=== PATIENT | male | born 1945 | race Caucasian/White ===

== ENCOUNTER 2023-01-10 16:19 | Emergency (ER) | payer OTHER, SELFPAY ==
[2023-01-10 16:26] VITALS: BP 154/82; PULSE 52; RESP 16; TEMP 36.4; O2SAT 97
--- NOTE | 2023-01-10 16:29 | ED.EYEPROB ---
HPI - Eye Problem General Chief complaint: Eye Problems Stated complaint: FB L EYE Time Seen by Provider: 01/10/23 16:29 Source: patient, RN notes reviewed and old records reviewed Mode of arrival: ambulatory Limitations: no limitations History of Present Illness HPI Narrative: 78 yr old male accompanied by his spouse with complaints of working on his deck this afternoon and he states that he felt something go into his left eye. He reports that he flushed his eye out at home but continued to have foreign body sensation to his left eye. Patient reports that he had his regular glasses on while working on deck but didn't have safety goggles. Visual acuity right eye 20/25 and left 20/40 with eye glasses worn during exam. Patient has no conjunctival redness or any drainage from left eye. MD chief complaint: eye redness and foreign body (sensation) Onset (ago): hour(s) (this afternoon) Eye Symptoms: burning, redness and foreign body sensation Severity scale (1-10): 4 Treatments Prior to Arrival: irrigated eye Related Data Home Medications Medication Instructions Recorded Confirmed atorvastatin 40 mg tablet 40 mg PO DAILY 01/10/23 01/10/23 tamsulosin 0.4 mg capsule 0.4 mg PO DAILY 01/10/23 01/10/23 Allergies Allergy/AdvReac Type Severity Reaction Status Date / Time No Known Allergies Allergy Verified 01/10/23 16:43 Review of Systems Review of Systems: CONSTITUTIONAL: Denies fever, chills, or sweats. EYES: Denies visual changes. Reports redness, irritation,no discharge. ENT: Denies rhinorrhea, congestion, sore throat, or otalgia. CARDIOVASCULAR: Denies chest pain, palpitations, or edema. RESPIRATORY: Denies cough or dyspnea. SKIN: Denies rash or itching. NEUROLOGIC: Denies headache All systems reviewed & are unremarkable except as noted in HPI and below PMFSH Past Medical History Medical History (Updated 01/10/23 @ 17:39 by Sophie Vogel NP) BPH (benign prostatic hyperplasia) Elevated cholesterol Social History Social History (Updated 01/10/23 @ 17:59 by Sophie Vogel NP) Smoking status: Never smoker Alcohol intake: unknown Substance use type: does not use Living arrangements: with family Gender identity (if verbalized by the patient): Male Comments At time of signature, agree with nursing past medical, surgical, social and family history. There is no relevant family history pertinent to the presenting complaint Exam Narrative: GENERAL: Well-appearing, well-nourished, and in no acute distress. HEAD: Normocephalic, atraumatic. EYES: PERRLA and EOMI. Upper and lower eyelids unremarkable. No periorbital cellulitis noted. Sclera and conjunctivae injected ENT: Nares clear, no rhinorrhea or epistaxis. Mucous membranes moist. NECK: Supple. no lymphadenopathy CHEST: Clear to auscultation. No respiratory distress.SAO2 97% on room air HEART: Regular rate and rhythm. No murmur heard. Normal peripheral pulses. SKIN: Warm, dry, no rash. NEURO: No focal deficits. Alert and oriented x3. Course Course Emergency Course: Patient is aware of diagnosis, understands and agrees to treatment plan. Anticipatory guidance given. Patient agrees to follow-up as directed and is aware of reasons to seek care at the emergency department. Portions of this record may have been created with voice recognition software Level of Care: Express Care Visit Vital Signs Vital signs: Vital Signs Temperature 36.4 C 01/10/23 16:26 Pulse Rate 52 L 01/10/23 16:26 Respiratory Rate 16 01/10/23 16:26 Blood Pressure 154/82 H 01/10/23 16:26 Pulse Oximetry 97 01/10/23 16:26 Temperature 36.4 C 01/10/23 16:26 Pulse Rate 52 L 01/10/23 16:26 Respiratory Rate 16 01/10/23 16:26 Blood Pressure 154/82 H 01/10/23 16:26 Pulse Oximetry 97 01/10/23 16:26 Reviewed Procedures FB Removal Eye Foreign Body #1: Foreign Body Removal Date: 01/10/23 Time Out performed: Yes Loc
== END 2023-01-10 16:50 | disposition home or self-care (01) ==
PROVIDERS: Emergency Provider Registered Nurse; PCP Family Medicine
DX: S05.02XA Injury of conjunctiva and corneal abrasion without foreign body, left eye, initial encounter (principal); X58.XXXA Exposure to other specified factors, initial encounter; N40.0 Benign prostatic hyperplasia without lower urinary tract symptoms; E78.00 Pure hypercholesterolemia, unspecified
CPT/HCPCS: 99213; A9270; G0463

== ENCOUNTER 2024-02-03 00:41 | Day surgery (SDC) | payer OTHER, SELFPAY ==
[2024-01-27 11:57] VITALS: BMI 29.0
[2024-02-03 13:17] VITALS: BP 139/75; PULSE 54; RESP 16; TEMP 36.2; O2SAT 100
[2024-02-03] MEDS: LACTATED RINGERS 1,000 ML 150 ML IV CONT (13:28)
--- NOTE | 2024-02-03 13:48 | WPDANESEPPF ---
Anes - Initial Pre Proc Eval Procedure: Operation Date: 02/03/24 14:00 Proposed Procedures p Colonoscopy - Catalino Sharp MD Date/Time: 02/03/24 13:48 Surgeon: Catalino Sharp MD Pre Op Diagnosis: CIBH, Non-celiac gluten sensitivity Patient Data Age: 79 Gender: M Height: 1.85 m Weight: 96.1 kg Last Vital Signs Temp 97.1 F L 02/03/24 13:17 Pulse 54 L 02/03/24 13:17 Resp 16 02/03/24 13:17 BP 139/75 02/03/24 13:17 Pulse Ox 100 02/03/24 13:17 O2 Del Method Room Air 02/03/24 13:17 Allergies Allergy/AdvReac Type Severity Reaction Status Date / Time gluten Allergy Severe CELIAC Verified 02/03/24 13:16 Home Medications Medication Instructions Recorded Confirmed Type atorvastatin 40 mg tablet 40 mg PO DAILY 01/10/23 02/03/24 History tamsulosin 0.4 mg capsule 0.8 mg PO DAILY 01/10/23 02/03/24 History Adult One Daily Multivitamin 1 cap PO DAILY 01/27/24 01/27/24 History aspirin 325 mg tablet 325 mg PO DAILY 01/27/24 02/03/24 History calcium carbonate-vitamin D3 500 1 cap PO DAILY 01/27/24 01/27/24 History mg (1,250 mg)-50 unit capsule loperamide 2 mg capsule 2 mg PO EVERY OTHER DAY 01/27/24 01/27/24 History Patient hx anesthesia problems: none Family hx anesthesia problems: none Results Review: All pre-operative results and documents have been reviewed as part of the pre-operative evaluation. [facility] Past Medical History Medical History (Updated 01/11/23 @ 00:01 by Abby Sarmiento) BPH (benign prostatic hyperplasia) Elevated cholesterol Social History Social History (Updated 01/10/23 @ 17:59 by Sophie Vogel NP) Smoking packs per day: 1.25 Smoking cigarettes per day: 25.0 Years smoked: 35 Smoking pack-years: 43.75 Smoking status: Former smoker Tobacco type: cigarettes Alcohol intake: current Substance use: never Substance use type: does not use Living arrangements: with family Gender identity (if verbalized by the patient): Male Spiritual care concerns: No Anes - Eval Final PreProcedure Day of Procedure 02/03/24 13:48 Patient weight: normal Heart: regular rate and rhythm Lungs: clear to auscultation Airway: Mallampati scale class II Neurological: alert and oriented Last oral intake: >/= 8 hours ASA classification: III Emergent: no Anesthetic plan: proceed Anesthesia type and monitoring: general GIVS and standard monitoring Results Review: All pre-operative results and documents have been reviewed as part of the pre-operative evaluation. Informed Consent: The patient's anesthetic plan and its attendant risks and benefits were discussed with the patient/family/POA. Questions were solicited and answers provided to the satisfaction of the patient/family/POA.
--- NOTE | 2024-02-03 14:05 | PM.HPGS ---
History of Present Illness History of Present Illness Consent: Risks, benefits, and alternatives have been discussed and questions answered. Patient agrees to proceed with procedure. Chief complaint: CIBH, Non-celiac gluten sensitivity Narrative: Timothy Walker is a 79 year old male here for colonoscopy, last one 9 years ago, he has been diagnosed with celiac and he is complaint with diet but last few months with some episodes of loose stools using imodium prn Review of Systems Review of Systems: All systems reviewed & are unremarkable except as noted in HPI and below PMFSH Past Medical History Medical History (Updated 02/03/24 @ 14:06 by Catalino Sharp MD) BPH (benign prostatic hyperplasia) Celiac disease Elevated cholesterol Loose stools Social History Social History (Updated 01/10/23 @ 17:59 by Sophie Vogel NP) Smoking packs per day: 1.25 Smoking cigarettes per day: 25.0 Years smoked: 35 Smoking pack-years: 43.75 Smoking status: Former smoker Tobacco type: cigarettes Alcohol intake: current Substance use: never Substance use type: does not use Living arrangements: with family Gender identity (if verbalized by the patient): Male Spiritual care concerns: No Meds Home Medications and Allergies Home Medications Medication Instructions Recorded Confirmed Type atorvastatin 40 mg tablet 40 mg PO DAILY 01/10/23 02/03/24 History tamsulosin 0.4 mg capsule 0.8 mg PO DAILY 01/10/23 02/03/24 History Adult One Daily Multivitamin 1 cap PO DAILY 01/27/24 01/27/24 History aspirin 325 mg tablet 325 mg PO DAILY 01/27/24 02/03/24 History calcium carbonate-vitamin D3 500 1 cap PO DAILY 01/27/24 01/27/24 History mg (1,250 mg)-50 unit capsule loperamide 2 mg capsule 2 mg PO EVERY OTHER DAY 01/27/24 01/27/24 History Allergies Allergy/AdvReac Type Severity Reaction Status Date / Time gluten Allergy Severe CELIAC Verified 02/03/24 13:16 Vital Signs Vital Signs - 24 hr 02/03/24 13:17 Temperature 97.1 F L Pulse Rate 54 L Respiratory Rate 16 Blood Pressure 139/75 Pulse Oximetry 100 Oxygen Delivery Room Air Exam Const: General: comfortable and no acute distress HENMT: Face/Nose/Sinus: Normal nares present Eyes: General: appearance normal, both eyes and all related structures Neck: Neck: no JVD Resp: Auscultation: clear to auscultation bilaterally Cardio: Rate: regular rate Rhythm: regular rhythm GI: Inspection: non-distended GI Palp: Yes Soft to palpation Skin: General skin exam: normal color Neuro: General: gait normal Speech: normal speech Extrem: General: normal to inspection Psych: Mental Status: mental status grossly normal Assessment and Plan Assessment and plan (1) Loose stools: Code(s): R19.5 - Other fecal abnormalities Status: Acute Assessment and Plan: colonoscopy, consider random bx (2) Celiac disease: Code(s): K90.0 - Celiac disease Status: Acute Assessment and Plan: on diet
[2024-02-03 14:27] VITALS: BP 134/79; PULSE 67; RESP 16; O2SAT 96
[2024-02-03 14:37] VITALS: BP 138/85; PULSE 62; RESP 16; O2SAT 98
[2024-02-03 14:44] VITALS: BP 135/82; PULSE 60; RESP 16; O2SAT 100
--- OUTSIDE RECORDS SUMMARY | 2024-02-03 14:45 | XMS_ITS | Referral Summary ---
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 Role Phone Ashley Mota DO Primary Care Provider Reason for Referral * Consultation (Routine) - New Request Specialty Diagnoses / Procedures Referred By Alexandro covarrubias Referred To Contact GASTROENTEROLOGY Diagnoses Gluten enteropathy Change in bowel habits Screening for colon cancer Ashley Mota DO [address] [place] [address] Catalino Alvarez MD [address] [facility] [address] [facility] [address] [place] [address] Referral ID Status Reason Start Date Expiration Date V isits Requested Visits Authorized [id number] New Request 12/17/2023 12/16/2024 1 1 Scheduling Instructions 'mau name: Catalino Sharp ([employer] Consultant) NPI # [id number] Tax ID # [id number] Phone number [phone] Fax number: [phone] Reason for referral: K90.41, R19.4, Z12.11 Insurance: [employer] Appointment: Reason for Visit * Reason Onset Date Comments Referral 12/17/2023 Encounter Details Date Type Department Care Team (Late st Contact Info) Description 12/17/2023 Telephone [facility] - [place] [address], [address] [place] [phone]
== END 2024-02-03 15:00 | disposition home or self-care (01) ==
PROVIDERS: PCP Family Medicine; Visit Provider Internal Medicine Gastroenterology
PROC: 0DJD8ZZ Inspection of Lower Intestinal Tract, Via Natural or Artificial Opening Endoscopic (ICD-10-PCS; CPT 45378; principal; 2024-02-03 14:00)
DX: K52.832 Lymphocytic colitis (principal); K64.8 Other hemorrhoids; K90.0 Celiac disease; Z87.891 Personal history of nicotine dependence
CPT/HCPCS: 45380; 88305; J1596; J2704; J7120

== ENCOUNTER 2025-06-28 00:33 | Day surgery (SDC) | payer OTHER, SELFPAY ==
[2025-06-10 10:27] VITALS: BMI 29.4
--- OUTSIDE RECORDS SUMMARY | 2025-06-28 00:35 | XMS_ITS | Clinical Summary ---
Author Organization [facility] Address [address] [place] [id number] Care Team Providers Care Mold Maker Name Role Phone Ashley Mota DO Primary Care Provider [phone] Allergies Active Allergy Reactions Criticality Noted Date Comments Food Diarrhea 08/04/2004 gluten Gluten Meal Unknown,Diarrhea 04/03/2005 Medications aspirin 325 MG tablet Take 1 tablet (325 mg total) by mouth daily. Active Calcium Carbonate-Vitamin D (CALCIUM-D) 600-400 MG-UNIT Tab Active Multiple Vitamin (MULTI-DAY) Tab Take 1 tablet by mouth daily. Active sildenafil (VIAGRA) 100 MG tablet Take 0.5 tablets (50 mg total) by mouth daily as needed for Erectile Dysfunction. Active atorvastatin (LIPITOR) 40 MG tabletIndications:M ixed hyperlipidemia Take 1 tablet (40 mg total) by mouth daily. 90 tablet 3 5 Active tamsulosin (FLOMAX) 0.4 MG CapIndications:Nikolay gn prostatic hyperplasia with urinary frequency TAKE 1 CAPSULE BY MOUTH TWICE A DAY 180 capsule 3 5 Active Active Problems Problem Noted Date Diagnosed Date Cardiomyopathy, unspecified type 03/24/2024 Difficult intubation 08/12/2023 Elevated prostate specific antigen (PSA) 013 Hyperlipidemia 01/28/2013 Arteriosclerosis of coronary artery 07/07/2012 BPH with elevated PSA 07/07/2012 Gluten enteropathy 07/07/2012 Resolved Problems Problem Noted Date Diagnosed Date Resolved Date Tinea pedis 12/24/2017 03/05/2021 Irritable bowel syndrome 08/31/201309/2020 Herpes zoster 07/07/2012 03/05/2021 Encounters Date Type Department Care Team Description 06/06/2025 9:30 AM EDUCATION ADMINISTRATOR Office Visit [facility] [address] [place] [address] Donald Cabrales MD Cardiomyopathy (1yr) 06/06/2025 Travel 06/03/2025 Results Follow-Up [facility] [address], [address] [facility] [place] [phone] Ashley Mota DO US AORTA 06/02/2025 9:30 AM CDT - 06/02/2025 11:59 PM CDT Hospital Encounter [facility] [place] [address] Ashley Mota DO Discharge Disposition: Home or Self Care (Routine Discharge) 06/02/2025 Travel 05/11/2025 Scan [employer] INFO SRVCS Scanned, [facility] 05/11/2025 Telephone [facility] [address], [address] [place] [address] Ashley Mota DO Referral 05/09/2025 Telephone [facility] [address], [address] [facility] [place] [address] Ashley Mota DO Referral Request (Cardiology referral) 05/05/2025 Telephone [facility] [address], [address] [facility] [place] [address] Ashley Mota DO Referral (GI Referral ) 04/26/2025 Telephone [facility] [address], [address] [place] [address] Ashley Mota DO Referral Request (Dermatology referral ) from Last 3 Months Immunizations Immunization Administration Dates Next Due Arexvy Respiratory Syncytial Virus (RSV, adjuvanted) 0.5 mL, PF 06/08/2023 Dtap (Generic) 03/29/2019 Fluzone 6 Months+ Quad (0.5 mL Prefilled Syringe) 05/27/2019,05/04/2018 Fluzone High Dose (IIV, triv alent, 0.5mL) 05/04/2024 Fluzone High Dose - >Age 65 (Prefilled Syringe) 05/10/2022,04/16/2020 Influenza (Generic) 04/27/2013 Influenza Adult (Generic) 04/26/2023,10/2020,06/03/2017,2015,04/27/2015 MODERNA COVID-19 (12+) MRNA, LNP-S, PF, 100 MCG/ 0.5 ML DOSE 10/13/2020,09/15/2020 MODERNA COVID-19 (CRYSTAL EVALUATOR AISHA TALITA), MRNA, LNP-S, PF, 50 MCG/ 0.25 ML DOSE 11/27/2021,06/13/2021 PFIZER COVID-19 BIVALENT (12 +) mRNA, LNP-S, PF, 30 MCG/0.3 ML DOSE 12/17/2022,06/12/2022 Pneumococcal (Pneumovax 23) 05/27/2019 Pneumococcal (Prevnar 13) 03/19/2016 Shingrix 02/16/2019,11/27/2018 Td (Decavac) 03/29/2019 Family History Medical History Relation Comments Early Father Dementia Mother Diabetes Mother Stroke Mother Suffered a strok e and at age 88 gluten enteropathy Mother Diabetes Sister Sudden Son 1 Early Son 2 Suffered sudden heart attack and at age 28 Relation Status Comments Father (Age 38) Maternal Grandfather Maternal Grandmother Mother (Age 88) Paternal Grandfather Paternal Grandmother Sister (Age 63) Son 1 (Age 28) Son 2 Social History Tobacco Use Types Packs/Day Years Used Date Smoking Tobacco: Former Cigarettes 1.5 30 Q uit: 04/2000 Passive Smoke Exposure: Past Smokeless Tobacco: Never Tobacco Cessation:Counseling Given: Not Answered Comments:NA Alcohol Use Standard Drinks/Week Comments Yes 0 (1 standard drink = 0.6 oz pure alcohol) Very rare consumption of alcohol, but occassionally AUDIT-C Answer Date Recorded Frequency of Alcohol Consumption Never 08/19/2018 Average Number of Drinks Not on file 019 Frequency of Binge Drinking Not on file 08/04 PHQ-2 Answer Date Recorded Patient Health Questionnaire-2 Score 0 03/25/2025 Sex and Gender Information Value Date Recorded Sex Assigned at Male 03/25/2025 7:47 AM CDT Legal Sex Male 7:04 PM CDT Gender Identity Male 11/23/2021 10:12 AM CDT Sexual Orientation Straight 11/23/2021 10 :12 AM CDT Occupation Industry Job Start Date Job End Date Teacher Not on file Not on file Not on file Last Filed Vital Signs Vital Sign Reading Time Taken Comments Blood Pressure 124/72 06/06/2025 10:03 AM EDUCATION ADMINISTRATOR Pulse 67 06/06/2025 9:26 AM EDUCATION ADMINISTRATOR Temperature 36.3 C (97.4 F) 03/25/2025 7:47 AM CDT Respiratory Rate 18 03/25/2025 7:47 AM CDT Oxygen Saturation 98% 06/06/2025 9:26 AM EDUCATION ADMINISTRATOR Inhaled Oxygen Concentration - - Weight 100.4 kg (221 lb 6.4 oz) 06/06/2025 9:26 AM EDUCATION ADMINISTRATOR Height 181.6 cm (5' 11.5) 06/06/2025 9:26 AM CS T Body Mass Index 30.45 06/06/2025 9:26 AM EDUCATION ADMINISTRATOR Plan of Treatment Upcoming Encounters Date Type Department Care Team (Late st Contact Info) Description 06/19/2026 9:45 AM EDUCATION ADMINISTRATOR Office Visit [facility] [address] [place] [address] Donald Cabrales MD [facility] [address] [place] [address] Health Maintenance Due Date Last Done Comments Annual Medicare Wellness Visit 01/07/2012 COVID-19 Vaccine ( season) 2025 01/12/2025, 05/04/2024, 05/02/2023, Additional history exists DTaP, Tdap and Td Vaccines (3 - Tdap) 03/29/2029 03/29/2019, 03/29/2019 Zoster Vaccines Completed 02/16/2019, 11/27/2018 Pneumococcal Vaccine: 50+ Years Completed 05/27/2019, 03/19/2016 RSV Immunization or 60+ Years Completed 06/08/2023 Colorectal Cancer Screening Colonoscopy (10 Years) Discontinued 02/03/2024, 08/30/2013, 08/30/2013 Hepatitis C Completed 03/17/2024 PHQ-2 (Physician [place]) Completed 03/25/2025 Influenza Adult Completed 05/09/2025, 08/2023, 04/26/2023, Additional history exists AAA SCREENING Completed 06/02/2025, 03/04, 10/21/2012 Hepatitis A Vaccines Aged Out No long er eligible based on patient's age to complete this topic Meningococcal B Vaccine Aged Out No l onger eligible based on patient's age to complete this topic Meningococcal Vaccine Aged Out No sangeetha reid eligible based on patient's age to complete this topic RSV Immunizations Under 20 Months Aged Out No longer eligible based on patient's age to complete this topic Procedures Procedure Name Priority Date/Time Associated Diagnosis Comments US AORTA Routine 06/02/2025 11:55 AM CDT Thoracic aortic aneurysm without rupture, unspecified part USE ECHOCARDIOGRAM W CON Routine 06/02/2025 11:03 AM CDT Cardiomyopathy, unspecified type (CMS/HCC HHS/HCC) Arteriosclerosis of coronary artery HEPATITIS C ANTIBODY W/RFX TO HCV RNA Routine 03/17/2024 8:34 AM CDT Need for hepatitis C screening test COLONOSCOPY GENERIC (SCAN ORDER) 02/03/2024 from Last 3 Months or Most Recently Relevant to Health Maintenance Results * US AORTA (06/02/2025 11:55 AM CDT) Anatomical Region Laterality Modality Abdomen Ultrasound 06/03/2025 8:13 AM CDT Impressions 06/03/2025 8:17 AM CDT IMPRESSION: 1. Aneurysmal dilatation of the proximal abdominal aorta measuring up to 3.8 cm, increased from prior study 03/13/2021. 2. Dilatation of the bilateral common iliac arteries measuring up to 1.7 cm, also increased. Ordered By: ASHLEY MOTA Interpreted By: Denis Cruz MD, 06/03/2025 8:13 AM Narrative 06/03/2025 8:17 AM CDT [place] [address] US AORTA INDICATION: f/u aortic aneurysm TECHNIQUE: Grayscale color and spectral Doppler ultrasound performed of the abdominal aorta. COMPARISON: Aortic ultrasound 03/13/2021. FINDINGS: The IVC is unremarkable. The proximal aorta measures 2.9 x 3.8 x 2.8 cm. This previously measured 2.5 x 2.4 x 2.2 cm. The mid aorta measures 2.3 x 2.1 x 2.7 cm. This previously measured up to 3.0 cm on 03/13/2021. The distal aorta measures 1.6 x 1.6 x 1.9 cm. There is patent Doppler flow within the abdominal aorta. There is heavy calcific plaquing of the distal abdominal aorta. The right common iliac artery measures 1.7 x 1.1 x 1.3 cm. The left common iliac artery measures 1.7 x 1.5 x 1.0 cm. These previously measured up to 1.2 cm on the right and 1.3 cm on the left respectively. Procedure Note Denis Cruz MD - 06/03/2025 [place] [address] US AORTA INDICATION: f/u aortic aneurysm TECHNIQUE: Grayscale color and spectral Doppler ultrasound performed ofthe abdominal aorta. COMPARISON: Aortic ultrasound 03/13/2021. FINDINGS: The IVC is unremarkable. The proximal aorta measures 2.9 x 3.8 x 2.8 cm.This previously measured 2.5 x 2.4 x 2.2 cm. The mid aorta measures 2.3 x2.1 x 2.7 cm. This previously measured up to 3.0 cm on 03/13/2021. Thedistal aorta measures 1.6 x 1.6 x 1.9 cm. There is patent Doppler flowwithin the abdominal aorta. There is heavy calcific plaquing of the distalabdominal aorta. The right common iliac artery measures 1.7 x 1.1 x 1.3cm. The left common iliac artery measures 1.7 x 1.5 x 1.0 cm. Thesepreviously measured up to 1.2 cm on the right and 1.3 cm on the leftrespectively. IMPRESSION: 1. Aneurysmal dilatation of the proximal abdominal aorta measuring up to3.8 cm, increased from prior study 03/13/2021. 2. Dilatation of the bilateral common iliac arteries measuring up to 1.7cm, also increased. Ordered By: ASHLEY MOTA Interpreted By: Denis Cruz MD, 06/03/2025 8:13 AM Ashley Mota DO ULTRASOUND Final Result * USE ECHOCARDIOGRAM W CON (06/02/2025 11:03 AM CDT) Anatomical Region Laterality Modality NA Echocardiogram 06/02/2025 9:55 AM CDT Narrative 06/03/2025 2:29 PM CDT Echocardiography Report Pat.Name: JORGE QUINONES Pat.ID: [id number] St.Date: 06/02/2025 [place].: [id number] JEANNA DESAI EWDPROV EWDPROV Exam Time: 9:55:00 AM Study Type:ECHO WITH CARDIAC DOPPLER COMP Height: 71 in Weight: 218 lb BSA: 2.19 m2 Age: 6 1945,80Y Sex: M BP: 148/72 HR: 58 bpm Sonogrphr: Maday Faustin [facility] Pat. Stat.:Outpatient Reason for Study:Cardiomyopathy, Shortness of breath Procedures: 2D, M-mode, Doppler, Color Flow, Definity was used to enhance endocardial definition. The study quality is technically difficult. Race: W ++++++++++++++++++++++++++++++++++++ SUMMARY: ++++++++++++++++++++++++++++++++++++ The left ventricular size is normal. The left ventricular systolic function is lower limits of normal. Estimated left ventricular ejection fraction is 50-55%. Mild concentric left ventricular hypertrophy. Left ventricular diastolic function is normal. The right ventricular size is mild to moderately enlarged. Right ventricular systolic function is normal. The left atrial size is mildly enlarged. Right atrial size is moderately enlarged. Mild tricuspid regurgitation. ++++++++++++++++++++++++++++++++++++ FINDINGS: ++++++++++++++++++++++++++++++++++++ LV: The left ventricular size is normal. The left ventricular systolic function is lower limits of normal. Estimated left ventricular ejection fraction is 50-55%. Mild concentric left ventricular hypertrophy. Left ventricular diastolic function is normal. WM: Wall motion appears normal in all segments. RV: The right ventricular size is mild to moderately enlarged. Right ventricular systolic function is normal. IVS: No evidence of ventricular septal defect. LA: The left atrial size is mildly enlarged. The left atrial volume is mildly increased (34- 41ml/M2). RA: Right atrial size is moderately enlarged. IAS: Atrial septum appears intact. MADELINE: No evidence of pericardial effusion. AO: Normal aortic root. The aortic root measures 3.6 cm. The proximal ascending aorta measures 3.3cm. PA: Estimated right atrial pressure of 3 mmHg. SVn: Inferior vena cava is normal. Inferior vena cava shows >50% collapse with respiration consistent with normal right atrial pressure. AV: The aortic valve is trileaflet. No evidence of aortic valve stenosis. No evidence of aortic regurgitation. MV: Trace mitral regurgitation. No evidence of mitral stenosis. PV: Trace pulmonic regurgitation. No evidence of pulmonic valve stenosis. TV: Mild tricuspid regurgitation. No evidence of tricuspid valve stenosis. ++++++++++++++++++++++++++++++++++++ MEASUREMENTS: ++++++++++++++++++++++++++++++++++++ DOPPLER LVOT LVOTpkPG 7 mmHg LVOTmnPG 4 mmHg LVOTpkVel 129 cm/s (70-110)+* LVOT SV 163 ml LVOT TVI 28.5 cm Right Atrium RA Press 3 mmHg Pace's Disk 20 Pulmonary Veins PVnpkVeld 32.8 cm/s PVnVs/Vd 1.6 PVnpkVels 53.4 cm/s PVn A Dur 158 msec AV Forward Flow AV TVI 38.1 cm AV pkPG 11 mmHg AV pkVel 163 cm/s (100-170)+ Area (TVI) 4.29 cm2 (3-5) AV mnPG 6 mmHg Area (Harsha) 4.53 cm2 (3-5) MV Forward Flow MV DeTm 515 msec MV pkPG 3 mmHg MVA P1/2t 1.46 cm2 (4-6)* MV E/A 0.8 MV P1/2t 151 msec (30-60)+* MV pkE 59.9 cm/s (60-130)* MV mnPG 1 mmHg MV pkA 76.4 cm/s PV Forward Flow PV pkVel 106 cm/s (60-90)+* PV AC 117 msec PV pkPG 4 mmHg TV Regurg Flow TV pkPG 20 mmHg TV pkVel 226 cm/s (30-70)* Right Ventricle RVsys P 23 mmHg Right Ventricle 13.7 cm/s Lat E' Lat e 9.46 cm/s Lat E/E' Lat E/e 6.3 Med E' Med e 6.09 cm/s Med E/E' Med E/e 9.8 Aortic Valve Aortic Valve Ar 1.96 Aortic Valve Ve 0.79 AV DI Value 0.75 Left Ventricle LV IVRT 130 msec PV Antegrade Flow Acceleration Sl 675 cm/s2 2D Left Ventricle LVIDd 6 cm (3.6-5.2)+* LV ESV 73.9 ml LVIDs 4.54 cm (2.3-3.9)+* LV ESV 120 ml LngAxd 9.48 cm LVESV BP 94.4 ml LngAxd 9.52 cm LV EF 50.7 % LV EDV 150 ml LV EF 42.3 % LV EDV 207 ml LV EF BP 46.4 % LVEDV BP 176 ml LV SV 76.1 ml LngAxs 7.94 cm LV SV 88 ml LngAxs 8.1 cm LV SV BP 81.6 ml LVPW LVPWd 1.08 cm Ventricular Septum IVSd 1.15 cm Left Atrium LA VOLBP 97.4 ml Aorta Ao Rtd 3.9 cm Ao Asc 3.7 cm (2.1-3.4)* LVOT LVOT 2.7 cm LVOTArea 5.73 cm2 Ratios IVS LA Biplane LAVol I BP 44.5 ml/m2 RA Single Plane Right Atrium MO 11.4 mm Right Atrium Sy 86.6 ml Right Atrium Sy 59.2 mm Right Atrium Sy 39.5 ml/m2 Right Atrium Sy 24.2 cm2 Right Ventricle Right Ventricle 54.4 mm Right Ventricle 36.3 mm Major Nemo 85.9 mm MMODE TA Tricuspid Annul 23.9 mm <Electronic Signature> 06/03/2025 02:29 PM Donald Cabrales M.D. Procedure Note Donald Cabrales MD - 06/03/2025 Echocardiography Report Pat.Name: JORGE QUINONES Pat.ID: [id number] .Date: 06/02/2025 : [id number] JEANNA DESAI EWDPROV EWDPROV Exam Time: 9:55:00 AM Study Type:ECHO WITH CARDIAC DOPPLER COMP Height: 71 in Weight: 218 lb BSA: 2.19 m2 Age: 6 1945,80Y Sex: M BP: 148/72 HR: 58 bpm Sonogrphr: Maday Faustin [facility] Pat. Stat.:Outpatient Reason for Study:Cardiomyopathy, Shortness of breath Procedures: 2D, M-mode, Doppler, Color Flow, Definity was used to enhance endocardial definition. The study quality is technically difficult. Race: W ++++++++++++++++++++++++++++++++++++ SUMMARY: ++++++++++++++++++++++++++++++++++++ The left ventricular size is normal. The left ventricular systolic function is lower limits of normal. Estimated left ventricular ejection fraction is 50-55%. Mild concentric left ventricular hypertrophy. Left ventricular diastolic function is normal. The right ventricular size is mild to moderately enlarged. Right ventricular systolic function is normal. The left atrial size is mildly enlarged. Right atrial size is moderately enlarged. Mild tricuspid regurgitation. ++++++++++++++++++++++++++++++++++++ FINDINGS: ++++++++++++++++++++++++++++++++++++ LV: The left ventricular size is normal. The left ventricular systolic function is lower limits of normal. Estimated left ventricular ejection fraction is 50-55%. Mild concentric left ventricular hypertrophy. Left ventricular diastolic function is normal. WM: Wall motion appears normal in all segments. RV: The right ventricular size is mild to moderately enlarged. Right ventricular systolic function is normal. IVS: No evidence of ventricular septal defect. LA: The left atrial size is mildly enlarged. The left atrial volume is mildly increased (34- 41ml/M2). RA: Right atrial size is moderately enlarged. IAS: Atrial septum appears intact. MADELINE: No evidence of pericardial effusion. AO: Normal aortic root. The aortic root measures 3.6 cm. The proximal ascending aorta measures 3.3cm. PA: Estimated right atrial pressure of 3 mmHg. SVn: Inferior vena cava is normal. Inferior vena cava shows >50% collapse with respiration consistent with normal right atrial pressure. AV: The aortic valve is trileaflet. No evidence of aortic valve stenosis. No evidence of aortic regurgitation. MV: Trace mitral regurgitation. No evidence of mitral stenosis. PV: Trace pulmonic regurgitation. No evidence of pulmonic valve stenosis. TV: Mild tricuspid regurgitation. No evidence of tricuspid valve stenosis. ++++++++++++++++++++++++++++++++++++ MEASUREMENTS: ++++++++++++++++++++++++++++++++++++ DOPPLER LVOT LVOTpkPG 7 mmHg LVOTmnPG 4 mmHg LVOTpkVel 129 cm/s (70-110)+* LVOT SV 163 ml LVOT TVI 28.5 cm Right Atrium RA Press 3 mmHg Pace's Disk 20 Pulmonary Veins PVnpkVeld 32.8 cm/s PVnVs/Vd 1.6 PVnpkVels 53.4 cm/s PVn A Dur 158 msec AV Forward Flow AV TVI 38.1 cm AV pkPG 11 mmHg AV pkVel 163 cm/s (100-170)+ Area (TVI) 4.29 cm2 (3-5) AV mnPG 6 mmHg Area (Harsha) 4.53 cm2 (3-5) MV Forward Flow MV DeTm 515 msec MV pkPG 3 mmHg MVA P1/2t 1.46 cm2 (4-6)* MV E/A 0.8 MV P1/2t 151 msec (30-60)+* MV pkE 59.9 cm/s (60-130)* MV mnPG 1 mmHg MV pkA 76.4 cm/s PV Forward Flow PV pkVel 106 cm/s (60-90)+* PV AC 117 msec PV pkPG 4 mmHg TV Regurg Flow TV pkPG 20 mmHg TV pkVel 226 cm/s (30-70)* Right Ventricle RVsys P 23 mmHg Right Ventricle 13.7 cm/s Lat E' Lat e 9.46 cm/s Lat E/E' Lat E/e 6.3 Med E' Med e 6.09 cm/s Med E/E' Med E/e 9.8 Aortic Valve Aortic Valve Ar 1.96 Aortic Valve Ve 0.79 AV DI Value 0.75 Left Ventricle LV IVRT 130 msec PV Antegrade Flow Acceleration Sl 675 cm/s2 2D Left Ventricle LVIDd 6 cm (3.6-5.2)+* LV ESV 73.9 ml LVIDs 4.54 cm (2.3-3.9)+* LV ESV 120 ml LngAxd 9.48 cm LVESV BP 94.4 ml LngAxd 9.52 cm LV EF 50.7 % LV EDV 150 ml LV EF 42.3 % LV EDV 207 ml LV EF BP 46.4 % LVEDV BP 176 ml LV SV 76.1 ml LngAxs 7.94 cm LV SV 88 ml LngAxs 8.1 cm LV SV BP 81.6 ml LVPW LVPWd 1.08 cm Ventricular Septum IVSd 1.15 cm Left Atrium LA VOLBP 97.4 ml Aorta Ao Rtd 3.9 cm Ao Asc 3.7 cm (2.1-3.4)* LVOT LVOT 2.7 cm LVOTArea 5.73 cm2 Ratios IVS LA Biplane LAVol I BP 44.5 ml/m2 RA Single Plane Right Atrium MO 11.4 mm Right Atrium Sy 86.6 ml Right Atrium Sy 59.2 mm Right Atrium Sy 39.5 ml/m2 Right Atrium Sy 24.2 cm2 Right Ventricle Right Ventricle 54.4 mm Right Ventricle 36.3 mm Major Nemo 85.9 mm MMODE TA Tricuspid Annul 23.9 mm <Electronic Signature> 06/03/2025 02:29 PM Donald Cabrales M.D. Ashley Mota DO ECHO Final Result * HEPATITIS C ANTIBODY W/RFX TO HCV RNA (03/17/2024 8:34 AM CDT) HEPATITIS C AB Non Reactive Non Reacti [facility] 1 INTERPRETATION Comment [facility] Comment: Not infected with HCV unless early or acute infection is suspected (which may be delayed in an immunocompromised individual), or other evidence exists to indicate HCV infection. 03/17/2024 8:34 AM CDT 03/17/2024 Narrative [facility] - 03/18/2024 6:13 AM CDT Performed at: [address] [place] [id number] Software Testing Specialist: Juan C Martinez PhD, Phone: [phone] us Ashley Mota DO LABORATORY Final Result [facility] [address] [place] [address] [facility] 1 * COLONOSCOPY GENERIC (SCAN ORDER) (02/03/2024) 02/03/2024 us [facility] Scanned SCANNING Final Resu lt from Last 3 Months or Most Recently Relevant to Health Maintenance Insurance [employer] Advance Directives Documents on File Type Date Recorded Patient Microfilm Processor Expl anation Power of Nutrition Director 03/15/2022 6:57 AM Care Teams Mold Maker Relationship Specialty Start Date End Date Ashley Mota DO [address] [place] [address] PCP - General 03/22/15
--- OUTSIDE RECORDS SUMMARY | 2025-06-28 00:35 | XMS_ITS | Encounter Summary ---
Author Organization [facility] Address [address] [place] [address] Care Team Providers Care Client Evaluator Name Role Phone Unavailable Primary Care Provider Unavailabl e Encounter Details Date Type Department Care Team (Late st Contact Info) Description 07/05/2024 Lab Requisition [facility] - DermPath Lab [address] [facility] [address] [place] [id number] Angy Amanda DO [address] [facility] [address] [place] [address] Social History Tobacco Use Types Packs/Day Years Used Date Smoking Tobacco: Never Assessed Sex and Gender Information Value Date Recorded Sex Assigned at Not on file Legal Sex Male 5:58 PM MANAGER PROJECT MANAGEMENT Gender Identity Not on file Sexual Orientation Not on file documented as of this encounter Plan of Treatment Not on file documented as of this encounter Procedures Procedure Name Priority Date/Time Associated Diagnosis Comments DERMATOPATHOLOGY Routine 07/05/2024 10:4 2 AM MANAGER PROJECT MANAGEMENT documented in this encounter Results * DERMATOPATHOLOGY (07/05/2024 10:42 AM MANAGER PROJECT MANAGEMENT) Case Report Dermatopathology Report Case: [id number] Authorizing Provider: Angy Amanda DO Collected: 07/05/2024 10:42 AM Ordering Location: [facility] - Received: 07/06/2024 08:54 AM DermPath Lab Pathologist: Erika Ruffin MD Specimen: Skin, right lower back 4 4:27 PM MANAGER PROJECT MANAGEMENT DERMATOPATHOLOGY LABORATORY Final Diagnosis Specimen A. SKIN, right lower back: SEBORRHEIC KERATOSIS, CLONAL TYPE, ERODED (L82.1) 4 4:27 PM MANAGER PROJECT MANAGEMENT DERMATOPATHOLOGY LABORATORY at [address] [facility] Clinical History R/o NMSC 4:27 PM [facility] DERMATOPATHOLOGY LABORATORY Gross Description Specimen A: Received is one formalin filled container labeled with the patient's name and designated right lower back. The specimen consists of a shave biopsy measuring 7x6x1 mm. Jar 0. 4:27 PM [facility] DERMATOPATHOLOGY LABORATORY Microscopic Description Specimen A. SKIN, right lower back: Sections show a proliferation of keratinocytes with overlying hyperkeratosis. Aggregates of keratinocytes with abundant pale-staining cytoplasm appear demarcated from surrounding basaloid keratinocytes. The epidermis is focally eroded. Ki-67 immunohistochemical stain reveals a normal proliferative index in the epidermal proliferation except in the area of the erosion where it is mildly elevated. 4:27 PM [facility] DERMATOPATHOLOGY LABORATORY Disclaimer An external and internal positive and negative controls are appropriate for the histochemical, immunohistochemical and immunofluorescence stain(s) in this case (if any), except where stated explicitly. The performance characteristics of the stain(s) cited in this report were developed and its performance characteristic determined by the Dermatopathology Laboratory at [facility], directed by Dr. Yves Sr. These tests need not be, and therefore are not, approved by the [place] Food and Drug Administration. The tests are used for clinical purposes. Billing Codes Specimen Charges Stain Charges 85574 1 25630 1 4:27 PM [facility] DERMATOPATHOLOGY LABORATORY Embedded Images 4:27 PM [facility] DERMATOPATHOLOGY LABORATORY Pathology/Cytolo gy TISSUE SPECIMEN FROM SKIN / Unknown 07/05/2024 10:42 AM MANAGER PROJECT MANAGEMENT 07/06/2024 8:54 AM [facility] us Angy Amanda DO LAB - PATHOLOGY/CYTOLOGY ORDERABLES Final Result DERMATOPATHOLOGY LABORATORY [facility] - Department of Dermatology [address], [address] [phone] documented in this encounter Visit Diagnoses Not on filedocumented in this encounter
--- OUTSIDE RECORDS SUMMARY | 2025-06-28 00:35 | XMS_ITS | Clinical Summary ---
Author Organization [facility] Care Team Providers Care Leaf Conditioner Name Role Phone Ashley Mota MD Primary Care Provider [phone] Allergies No known active allergies Medications atorvastatin (LIPITOR) 40 mg tablet Take 40 mg by mouth daily 09/18/2020 Active calcium carbonate-vit D3-min 600 mg calcium- 400 unit tablet Take by mouth Active tadalafiL (CIALIS) 5 mg tablet Take 5 mg by mouth daily 09/18/2020 Active tamsulosin (FLOMAX) 0.4 mg extended release capsule Take 0.4 mg by mouth 2 (two) times a day 10/14/2020 Active aspirin 325 mg tablet Take 1 tablet by mouth daily Active multivitamin tablet Take 1 tablet by mouth daily Active Active Problems Problem Noted Date Diagnosed Date Complete rupture of rotator cuff 11/10/2020 Surgical History Surgery Date Site/Laterality Comments HERNIA REPAIR APPENDECTOMY CORONARY ARTERY BYPASS GRAFT 08/04/2000 - 09/03/2000 Minimally invasive direct coronary artery bypass surgery Medical History Medical History Date Comments Kidney stone Hypercholesteremia Family History Medical History Relation Name Comments Celiac disease Mother Diabetes Mother Stroke Mother Relation Name Status Comments Mother Social History Tobacco Use Types Packs/Day Years Used Date Smoking Tobacco: Former Cigarettes 1.5 35 1 965 - 2000 Personal Safety Answer Date Recorded Getting School Help Needed Not on file 10/18 Sex and Gender Information Value Date Recorded Sex Assigned at Not on file Legal Sex Male 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 Gender Identity Not on file Sexual Orientation Not on file 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
--- OUTSIDE RECORDS SUMMARY | 2025-06-28 00:35 | XMS_ITS | Encounter Summary ---
Author Organization [facility] Address [facility] [place] [address] Care Team Providers Care Health And Safety Coordinator Name Role Phone Ashley Mota DO Primary Care Provider [phone] Encounter Details Date Type Department Care Team (Late st Contact Info) Description 03/20/2022 NetSanityt Message Enc [facility] Family Medicine - [place] [address], [address] [place] [address] Ashley Mota DO [address] [place], [place] [phone] Brunoter Monitor Social History Tobacco Use Types Packs/Day Years Used Date Smoking Tobacco: Former Smokeless Tobacco: Never Comments:NA Alcohol Use Standard Drinks/Week Comments No 0 (1 standard drink = 0.6 oz pur e alcohol) rare AUDIT-C Answer Date Recorded Frequency of Alcohol Consumption Never 08/19/2018 Average Number of Drinks Not on file 019 Frequency of Binge Drinking Not on file 08/04 PHQ-2 Answer Date Recorded PHQ-2 Score - If the patient scores above 3, please move on to questions 3-9 0 11/23/2021 Sex and Gender Information Value Date Recorded Sex Assigned at Male 03/25/2025 7:47 AM CDT Legal Sex Male 7:04 PM CDT Gender Identity Male 11/23/2021 10:12 AM CDT Sexual Orientation Straight 11/23/2021 10 :12 AM CDT COVID-19 Exposure Response Date Recorded In the last 10 days, have yo u been in contact with someone who was confirmed or suspected to have Coronavirus/COVID-19? Unable to assess 03/22/2022 11:02 AM CDT documented as of this encounter Plan of Treatment Upcoming Encounters Date Type Department Care Team (Late st Contact Info) Description 06/19/2026 9:45 AM POWER TOOL REPAIRER Office Visit [facility] [address] [place] [address] Donald Cabrales MD [facility], [address] [place], [place] [phone] documented as of this encounter Visit Diagnoses Not on filedocumented in this encounter Additional Health Concerns Assessment Noted Time PHQ-9 Depression Total Score: 0 03/05/20 21 1:23 PM CDT documented as of this encounter Care Teams Health And Safety Coordinator Relationship Specialty Start Date End Date Ashley Mota DO [address] [place] [address] PCP - General 03/22/15 documented as of this encounter
--- OUTSIDE RECORDS SUMMARY | 2025-06-28 00:35 | XMS_ITS | Clinical Summary ---
Author Organization [facility] Address [address] [place] [address] Care Team Providers Care Jailkeeper Name Role Phone Unavailable Primary Care Provider Unavailabl e Source Comments [facility] [employer],non-owned Affiliates and Associated Physician Practices is amultiple site organization consisting of ambulatory clinics and hospital sitesin [place], [place], [place] and [place]. This disclosure is being madepursuant to the Care Everywhere program and may not contain all information available regarding this patient. 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 Gender Identity Not on file Sexual Orientation Not on file Plan of Treatment Health Maintenance Due Date Last Done Comments MEDICARE AWV 12 MONTHS 1945 HEPATITIS C SCREENING 01/01/1965 DTAP/TDAP/TD VACCINES (1 - Tdap) 1966 PNEUMOCOCCAL VACCINE 50+ (1 of 1 - PCV) 1997 ZOSTER VACCINE (1 of 2) 1997 Respiratory Syncytial Virus (RSV) Vaccine Pt: or over 60 yrs (1 - 1-dose 75+ series) 2022 DEPRESSION SCREENING 08/04/2024 COVID-19 VACCINE ( - 2024-2 6 season) 2025 INFLUENZA VACCINE (#1) 2025 HEPATITIS B VACCINE Aged Out No longe r eligible based on patient's age to complete this topic HIB VACCINE Aged Out No longer eligi ble based on patient's age to complete this topic HPV VACCINE Aged Out No longer eligi ble based on patient's age to complete this topic MENINGOCOCCAL (Group B) VACC INE SHARED DECISION-MAKING Aged Out No longer eligibl e based on patient's age to complete this topic MENINGOCOCCAL GROUPS A/C/Y/W VACCINE Aged Out No longer eligible b ased on patient's age to complete this topic Insurance [employer] MED[employer]ARE E[employer]ENCE MEDICARE SELF PAY NO INSURANCE Member Subscriber Plan / Payer (Ef fective for All Dates) Name:Jorge Quinones Member ID:Not on file Relation to Subscriber:Not on file Name:JORGE QUINONES Subscriber ID:Not on file Address: [address] [place] [address] Payer ID:Not on file Group ID:Not on file Type:Self Pay Address: [place], [place] * Guarantor: JORGE QUINONES Account Type Relation to Patient Date of Phone Billing Address Personal/Family [address] [place] [place] [address] [employer] MED[employer] SELF PAY NO INSURANCE Member Subscriber Plan / Payer (Ef fective for All Dates) Name:Jorge Quinones Amber Member ID:Not on file Relation to Subscriber:Not on file Name:AARONJORGE Subscriber ID:Not on file Address: [address] [place] [address] Payer ID:Not on file Group ID:Not on file Type:Self Pay Address: [place], [place] * Guarantor: JORGE QUINONES Account Type Relation to Patient Date of Phone Billing Address Personal/Family [address] [place] [address] [facility] MEDICARE SELF PAY NO INSURANCE Member Subscriber Plan / Payer (Ef fective for All Dates) Name:Aaron Jorge Amber Member ID:Not on file Relation to Subscriber:Not on file Name:JORGE QUINONES Subscriber ID:Not on file Address: [address] [place] [address] Payer ID:Not on file Group ID:Not on file Type:Self Pay Address: [place], [place]
--- OUTSIDE RECORDS SUMMARY | 2025-06-28 00:35 | XMS_ITS | Encounter Summary ---
Author Organization [facility] Address [facility] [place] [address] Care Team Providers Care Bicycle Racer Name Role Phone Ashley Mota DO Primary Care Provider [phone] Encounter Details Date Type Department Care Team (Late st Contact Info) Description 06/03/2022 PeopleGoal Message Enc [facility], [address] [address] [facility] Provider Result Social History Tobacco Use Types Packs/Day Years Used Date Smoking Tobacco: Former Cigarettes Q uit: 04/2000 Smokeless Tobacco: Never Comments:NA Alcohol Use Standard Drinks/Week Comments Yes 3.3 (1 standard drink = 0.6 oz p ure alcohol) rare AUDIT-C Answer Date Recorded Frequency of Alcohol Consumption Never 08/19/2018 Average Number of Drinks Not on file 019 Frequency of Binge Drinking Not on file 08/04 PHQ-2 Answer Date Recorded PHQ-2 Score - If the patient scores above 3, please move on to questions 3-9 0 04/24/2022 Sex and Gender Information Value Date Recorded Sex Assigned at Male 03/25/2025 7:47 AM CDT Legal Sex Male 7:04 PM CDT Gender Identity Male 11/23/2021 10:12 AM CDT Sexual Orientation Straight 11/23/2021 10 :12 AM CDT Occupation Industry Job Start Date Job End Date Teacher Not on file Not on file Not on file COVID-19 Exposure Response Date Recorded In the last 10 days, have yo u been in contact with someone who was confirmed or suspected to have Coronavirus/COVID-19? No / Unsure 05/31/2022 7:37 AM CDT documented as of this encounter Plan of Treatment Upcoming Encounters Date Type Department Care Team (Late st Contact Info) Description 06/19/2026 9:45 AM BUSHER HELPER Office Visit [facility] [address] [place] [address] Donald Cabrales MD [facility], [address] [place] [address] documented as of this encounter Visit Diagnoses Not on filedocumented in this encounter Additional Health Concerns Assessment Noted Time PHQ-9 Depression Total Score: 0 03/05/20 21 1:23 PM CDT documented as of this encounter Care Teams Bicycle Racer Relationship Specialty Start Date End Date Ashley Mota DO [address] [place] [address] PCP - General 03/22/15 documented as of this encounter
[2025-06-28 08:56] VITALS: BP 152/93; PULSE 56; RESP 18; TEMP 37.2; O2SAT 99
[2025-06-28] MEDS: LACTATED RINGERS 1,000 ML 150 ML IV CONT (08:58)
--- NOTE | 2025-06-28 09:29 | WPDANESEPPF ---
Anes - Initial Pre Proc Eval Procedure: Operation Date: 06/28/25 10:00 Proposed Procedures p Esophagogastroduodenoscopy EGD - Catalino Sharp MD Date/Time: 06/28/25 09:29 Surgeon: Catalino Sharp MD Pre Op Diagnosis: Dysphagia, unspecified Patient Data Age: 80 Gender: M Height: 1.8 m Weight: 99.7 kg Last Vital Signs Temp 98.9 F 06/28/25 08:56 Pulse 56 L 06/28/25 08:56 Resp 18 06/28/25 08:56 BP 152/93 H 06/28/25 08:56 Pulse Ox 99 06/28/25 08:56 O2 Del Method Room Air 06/28/25 08:56 Allergies Allergy/AdvReac Type Severity Reaction Status Date / Time gluten Allergy Severe CELIAC Verified 06/10/25 10:25 Home Medications ?Medication ?Instructions ?Recorded ?Confirmed ?Type atorvastatin 40 mg tablet 40 mg PO DAILY 01/10/23 06/28/25 History tamsulosin 0.4 mg capsule 0.4 mg PO BID 01/10/23 06/28/25 History Adult One Daily Multivitamin 1 cap PO DAILY 01/27/24 06/28/25 History aspirin 325 mg tablet 325 mg PO DAILY 01/27/24 06/28/25 History calcium carbonate-vitamin D3 500 1 cap PO DAILY 01/27/24 06/28/25 History mg (1,250 mg)-50 unit capsule Patient hx anesthesia problems: none and other (Pt reports that he was told he was difficult to intubated in 2000. ) Family hx anesthesia problems: none Results Review: All pre-operative results and documents have been reviewed as part of the pre-operative evaluation. [facility] Past Medical History Medical History History of umbilical hernia History of mycobacterial infection Celiac disease BPH (benign prostatic hyperplasia) Elevated cholesterol Surgical History Surgical History History of appendectomy Social History Social History Smoking packs per day: 1.5 Smoking cigarettes per day: 30.0 Years smoked: 35 Smoking pack-years: 52.50 Smoking status: Former smoker Tobacco type: cigarettes Alcohol intake: current Alcohol use details: 1 per month Substance use: never Substance use type: does not use Living arrangements: with family Gender identity (if verbalized by the patient): Male Spiritual care concerns: No Anes - Eval Final PreProcedure Day of Procedure 06/28/25 09:29 Patient weight: obese Lungs: normal air movement Airway: Mallampati scale class II Neurological: alert and oriented Last oral intake: >/= 8 hours ASA classification: III Emergent: no Anesthetic plan: proceed Anesthesia type and monitoring: general GIVS and standard monitoring Results Review: All pre-operative results and documents have been reviewed as part of the pre-operative evaluation. Pt very active w riding/swimming, running, no cp or sob, hyperlipidemia, hx of CABG x 1 2000. Informed Consent: The patient's anesthetic plan and its attendant risks and benefits were discussed with the patient/family/POA. Questions were solicited and answers provided to the satisfaction of the patient/family/POA.
--- NOTE | 2025-06-28 09:39 | PM.HPGS ---
History of Present Illness History of Present Illness Consent: Risks, benefits, and alternatives have been discussed and questions answered. Patient agrees to proceed with procedure. Chief complaint: Dysphagia, unspecified Narrative: Timothy Walker is a 80 year old male with celiac disease but last egd years ago, also some odynophagia Review of Systems Review of Systems: All systems reviewed & are unremarkable except as noted in HPI and below PMFSH Past Medical History Medical History History of umbilical hernia History of mycobacterial infection Celiac disease BPH (benign prostatic hyperplasia) Elevated cholesterol Surgical History Surgical History History of appendectomy Social History Social History Smoking packs per day: 1.5 Smoking cigarettes per day: 30.0 Years smoked: 35 Smoking pack-years: 52.50 Smoking status: Former smoker Tobacco type: cigarettes Alcohol intake: current Alcohol use details: 1 per month Substance use: never Substance use type: does not use Living arrangements: with family Gender identity (if verbalized by the patient): Male Spiritual care concerns: No Meds Home Medications and Allergies Home Medications ?Medication ?Instructions ?Recorded ?Confirmed ?Type atorvastatin 40 mg tablet 40 mg PO DAILY 01/10/23 06/28/25 History tamsulosin 0.4 mg capsule 0.4 mg PO BID 01/10/23 06/28/25 History Adult One Daily Multivitamin 1 cap PO DAILY 01/27/24 06/28/25 History aspirin 325 mg tablet 325 mg PO DAILY 01/27/24 06/28/25 History calcium carbonate-vitamin D3 500 1 cap PO DAILY 01/27/24 06/28/25 History mg (1,250 mg)-50 unit capsule Allergies Allergy/AdvReac Type Severity Reaction Status Date / Time gluten Allergy Severe CELIAC Verified 06/10/25 10:25 Vital Signs Vital Signs - 24 hr 06/28/25 08:56 Temperature 98.9 F Pulse Rate 56 L Respiratory Rate 18 Blood Pressure 152/93 H Pulse Oximetry 99 Oxygen Delivery Room Air Exam Const: General: comfortable and no acute distress HENMT: Face/Nose/Sinus: Normal nares present Eyes: General: appearance normal, both eyes and all related structures Neck: Neck: no JVD Resp: Auscultation: clear to auscultation bilaterally Cardio: Rate: regular rate Rhythm: regular rhythm GI: Inspection: non-distended GI Palp: Yes Soft to palpation Skin: General skin exam: normal color Extrem: General: normal to inspection Psych: Mental Status: mental status grossly normal Assessment and Plan Assessment and plan (1) Celiac disease: Code(s): K90.0 - Celiac disease Status: Acute Assessment and Plan: egd (2) Painful swallowing: Code(s): R13.10 - Dysphagia, unspecified Status: Acute
--- NOTE | 2025-06-28 09:43 | S_PTH ---
PATIENT: Timothy Walker LOC: [facility]#:[id number] AGE/SX: 80/M ROOM: RE06/28/[address]: Catalino Sharp MD : 1945 BED: DIS: 06/28/2025 SPEC #: [id number] RECD: 06/28/25 10:35 STATUS: MARY PASCAL #: [id number] VALENTINE: 06/28/25 09:[address]: Catalino Sharp DEPT: [facility] [place] Surgical RECD BY: Melba De La Fuente ENTERED: 06/28/25 10:36 SP TYPE: Surgical OTHR DR: Ashley MotaMD Tissues: A - Small Bowel Bx B - Gastric Biopsy C - Esophageal Biopsy Procedures: Hematoxylin and Eosin Stain Gross and Microscopic Level 4
[2025-06-28 09:51] VITALS: BP 167/88; PULSE 49; RESP 23; O2SAT 98
[2025-06-28 10:01] VITALS: BP 164/93; PULSE 48; RESP 20; O2SAT 98
[2025-06-28 10:11] VITALS: BP 167/87; PULSE 48; RESP 18; O2SAT 99
== END 2025-06-28 10:22 | disposition home or self-care (01) ==
PROVIDERS: PCP Family Medicine; Referring Provider Nurse Practitioner; Visit Provider Internal Medicine Gastroenterology
PROC: 0DJ08ZZ Inspection of Upper Intestinal Tract, Via Natural or Artificial Opening Endoscopic (ICD-10-PCS; CPT 43239; principal; 2025-06-28 10:00)
DX: K90.0 Celiac disease (principal); K21.00 Gastro-esophageal reflux disease with esophagitis, without bleeding; K22.10 Ulcer of esophagus without bleeding; K44.9 Diaphragmatic hernia without obstruction or gangrene; Z87.891 Personal history of nicotine dependence; E66.9 Obesity, unspecified; Z68.30 Body mass index [BMI] 30.0-30.9, adult
CPT/HCPCS: 43239; 88305; J2003; J2704; J7120